=== PATIENT | female | born 1930 | race Caucasian/White ===

== ENCOUNTER 2016-10-26 08:57 | Emergency (ER) | payer OTHER ==
[~2016-10-26 08:57] MED LIST: CLOT1CRE4 VA; HCTZ50TA OR; LEVO100T75 PO; OXYB5SYP PO; POTA20PA PO; ROSU40 PO
--- NOTE | 2016-10-26 09:40 | PD ---
HPI Chief Complaint: Code Blue Time Seen by Provider: 09:24 Travel History International Travel<30 days: No Contact w/Intl Traveler<30days: No Traveled to known affect area: No History of Present Illness HPI 86-year-old female was brought in by EMS to the ED in cardiopulmonary arrest. Patient's [id number] states the patient has been complaining of shortness breath for the past week. Patient complains of severe generalized malaise and weakness for the past week. Patient went to [facility] office this morning for echocardiogram. Patient collapsed in the office. EMS was called. Patient was found to be in PEA. Chest compression started. [id number] ventilation started. IV access established. Patient was given epinephrine IV. Patient was brought to ED for evaluation. Patient in full cardiopulmonary arrest on arrival. Patient has history of aortic stenosis, chronic kidney disease, hypercholesterolemia, hypertensive heart disease, hypothyroidism and lung mass. PFSH Past Medical History High Cholesterol: Yes Hypertension: Yes Past Surgical History Abdominal Surgery: Yes (BOWEL & INTESTINE) Cholecystectomy: Yes Hysterectomy: Yes Social History Alcohol Use: No Tobacco Use: No Substance Use: No Allergies-Medications (Allergen,Severity, Reaction): Coded Allergies: Sulfa (Verified Allergy, Unknown, 11/01/10) Reported Meds & Prescriptions Reported Meds & Active Scripts Active Reported Hctz/Triamterene (Triamterene/HCTZ) 1 Tab Tab 1 Tab OR Ditropan (Oxybutynin Chloride) 5 Mg/5 Ml Syp 5 Mg PO BID Klor-Con (Potassium Chloride) 20 Meq Pow 20 Meq PO Levothroid (Levothyroxine Sodium) 100 Mcg Tab 100 Mcg PO Clotrimazole 1 % Cre 1 % VA Crestor (Rosuvastatin Calcium) 40 Mg Tab 40 Mg PO DAILY Review of Systems ROS Limitations: Unresponsive General / Constitutional: No: Fever Eyes: No: Visual changes HENT: No: Headaches Cardiovascular: No: Chest Pain or Discomfort Respiratory: Positive: Shortness of Breath Gastrointestinal: No: Abdominal Pain Genitourinary: No: Dysuria Musculoskeletal: No: Pain Skin: No Rash Neurologic: No: Weakness Psychiatric: No: Depression Endocrine: No: Polydipsia Hematologic/Lymphatic: No: Easy Bruising Physical Exam Narrative GENERAL: Well-nourished, well-developed patient. SKIN: Focused skin assessment warm/dry. HEAD: Normocephalic. EYES: No scleral icterus. No injection or drainage. NECK: Supple, trachea midline. No JVD or lymphadenopathy. CARDIOVASCULAR: No cardiac activity RESPIRATORY: No respiratory activity GASTROINTESTINAL: Abdomen soft, nondistended. MUSCULOSKELETAL: No cyanosis, or edema. Patient has 2 small skin avulsion bilateral forearm. BACK: Nontender without obvious deformity. MDM Medical Decision Making Medical Screen Exam Complete: Yes Emergency Medical Condition: Yes Medical Record Reviewed: Yes Differential Diagnosis Differential diagnosis including cardiac arrhythmia, PEA, V. tach, V. fib, electrolyte abnormality. Narrative Course 86-year-old female was brought in by EMS in full cardiopulmonary arrest. ACLS protocol follow-up. Patient was intubated by me. Small amount of Fresh blood visible in the ET tube. ET tube suctioned. Chest compression continued. Epinephrine, bicarbonate IV given. Patient did not respond. I pronounced the patient. Diagnosis Primary Impression: Cardiopulmonary arrest Additional Impressions: Hypertensive heart disease Qualified Code: I11.9 - Hypertensive heart disease without heart failure Lung mass Disposition: 20 Condition: Charles Laughlin MD Oct 26, 2016 09:40
== END 2016-10-26 11:40 | disposition expired ==
LOC: PHED 08:57
DX: I46.9 Cardiac arrest, cause unspecified (principal); I11.9 Hypertensive heart disease without heart failure; R91.8 Other nonspecific abnormal finding of lung field
CPT/HCPCS: 31500; 92950